=== PATIENT | female | born 1930 | race Caucasian/White ===

== ENCOUNTER 2017-10-01 16:38 | Emergency (ER) | payer MEDICARE, OTHER ==
[2017-10-01 17:03] VITALS: BP 118/64
[2017-10-01] MEDS ORDERED: DOXYcycline CAP(*) 100 MG PO ONE (17:53)
--- NOTE | 2017-10-01 18:11 | UC ---
Skin Complaint HPI - HPI Summary HPI Summary: patient states she noticed redness on the top of her left foot 3 days ago. She has cats, who sometimes sleep with her and she gets scratches from them. She states she may have been scratching herself while sleeping. Denies chills, fever. States she recently had intraarticular injections in both knees due to OA , on insulin to control DM. History he is of HTN and GERD as well. - History of Current Complaint Chief Complaint: UCSkin Time Seen by Provider: 10/01/17 17:02 Stated Complaint: SORE ON LEFT FOOT (TYPE 2 DIABETIC) Hx Obtained From: Patient ?: No Onset/Duration: Sudden Onset, Lasting Days Skin Exposure Onset/Duration: Days Ago Onset Severity: Mild Current Severity: Moderate Pain Intensity: 4 Location: Discrete, Foot (Left) Character: Redness Aggravating Factor(s): Nothing Alleviating Factor(s): Nothing Associated Signs & Symptoms: Positive: Negative Related History: Diabetes - Allergy/Home Medications Allergies/Adverse Reactions: Allergies Allergy/AdvReac Type Severity Reaction Status Date / Time diphenhydramine Allergy Agitation Verified 10/01/17 17:03 [From Benadryl] Penicillins Allergy Hives Verified 10/01/17 17:03 Home Medications: Home Medications Ibuprofen TAB* [Advil TAB*] 200 mg PO Q8H PRN 10/01/17 [History Confirmed ] Insulin Glargine/Lixisenatide [Soliqua 100 Unit-33 Mcg/ml Pen] 30 units SQ DAILY 10/01/17 [History Confirmed 10/01/17] Losartan Potassium 25 mg PO DAILY 10/01/17 [History Confirmed 10/01/17] Omeprazole CAP* [Prilosec CAP* 20 MG] 20 mg PO DAILY 10/01/17 [History Confirmed 10/01/17] celeCOXIB CAP* [CeleBREX CAP*] 100 mg PO BID 10/01/17 [History Confirmed ] clonazePAM TAB(*) [KlonoPIN TAB(*)] 0.5 mg PO BEDTIME PRN 10/01/17 [History Confirmed 10/01/17] Review of Systems Constitutional: Negative Skin: Rash, Bruising All Other Systems Reviewed And Are Negative: Yes PMH/Surg Hx/FS Hx/Imm Hx Previously Healthy: Yes - Surgical History Surgical History: Yes Surgery Procedure, Year, and Place: tonsillectomy. gallbladder 2013 - Social History Alcohol Use: None Substance Use Type: None Smoking Status (MU): Never Smoked Tobacco Physical Exam Triage Information Reviewed: Yes Appearance: Well-Appearing, No Pain Distress, Well-Nourished Vital Signs: Initial Vital Signs Temp 98.8 F 10/01/17 16:51 Pulse 91 10/01/17 16:51 Resp 16 10/01/17 16:51 BP 118/64 10/01/17 16:51 Pulse Ox 97 10/01/17 16:51 Vital Signs Reviewed: Yes Eyes: Positive: Conjunctiva Clear ENT: Positive: Hearing grossly normal Neck: Positive: Supple, Nontender, No Lymphadenopathy Respiratory: Positive: Chest non-tender, Lungs clear, Normal breath sounds, No respiratory distress Cardiovascular: Positive: RRR, No Murmur, Pulses Normal, Brisk Capillary Refill Abdomen Description: Positive: Nontender Musculoskeletal: Positive: Strength Intact, ROM Intact, No Edema, Other: - no LNE Skin Exam: Other - escoriation michel on both LE surrounded by erythema on dorsum of left foot. No pedal edema, no proximal LNE, non tender to touch. Toenail dystrophy left big toe. Pedal pulses present, brisk capillary refill. Course/Dx - Course Course Of Treatment: patient to start doxycycline as prescribed, apply bactroban on escoriations. - Diagnoses Provider Diagnoses: Cellulitis left foot Discharge - Sign-Out/Discharge Documenting (check all that apply): Patient Departure - Discharge Plan Condition: Stable Disposition: HOME Prescriptions: Bacitracin OINT* 113.4 gm .SEE ORDER BID #1 tube Cephalexin CAP* [Keflex CAP*] 500 mg PO TID 7 Days #21 cap DOXYcycline CAP(*) [DOXYcycline 100MG CAP(*)] 100 mg PO BID 7 Days #14 cap Mupirocin 2% OINT* [Bactroban 2 % Oint*] 1 applic TOPICAL BID #1 tube Patient Education Materials: Mupirocin (On the skin), Doxycycline (By mouth), Cellulitis (ED) Referrals: Peter Jones MD [Primary Care Provider] - - Billing Disposition and Condition Condition: STABLE Disposition: Home
== END 2017-10-01 18:09 | disposition home or self-care (01) ==
LOC: UCCORT 16:38
DX: L03.116 Cellulitis of left lower limb (principal); E11.9 Type 2 diabetes mellitus without complications; Z79.4 Long term (current) use of insulin; I10 Essential (primary) hypertension; K21.9 Gastro-esophageal reflux disease without esophagitis; Z88.0 Allergy status to penicillin; Z88.8 Allergy status to other drugs, medicaments and biological substances
CPT/HCPCS: 99212; A9270-GY; G0463

== ENCOUNTER 2017-11-11 10:44 | Emergency (ER) | payer MEDICARE ==
[2017-11-11 13:05] VITALS: BP 159/66
--- NOTE | 2017-11-11 14:07 | RAD ---
INDICATION: Cough COMPARISON: None TECHNIQUE: PA and lateral views of the chest were obtained. FINDINGS: The heart and mediastinum are normal in size and contour. There is mild calcification overlying the arch of the aorta. The lungs are grossly clear. There is no evidence of large pleural effusion. Degenerative changes of the thoracic spine include loss of intervertebral disc height and anterior marginal osteophyte formation. There is no radiographic evidence of free air beneath the diaphragm IMPRESSION: No radiographic evidence of acute cardiopulmonary disease.
--- NOTE | 2017-11-11 14:17 | UC ---
Respiratory Complaint HPI - HPI Summary HPI Summary: 87-year-old female with history of diabetes, hypokalemia in the past, presents with episode of coughing 2 days nonproductive, dry, improving currently, patient was worried about her blood sugar and potassium level. Patient feels well, and denies any nausea, vomiting, or fever. - History of Current Complaint Chief Complaint: UCGeneralIllness Stated Complaint: COUGH Pain Intensity: 0 - Allergies/Home Medications Allergies/Adverse Reactions: Allergies Allergy/AdvReac Type Severity Reaction Status Date / Time diphenhydramine Allergy Agitation Verified 11/11/17 13:05 [From Benadryl] Penicillins Allergy Hives Verified 11/11/17 13:05 PMH/Surg Hx/FS Hx/Imm Hx - Additional Past Medical History Additional PMH: Diabetes, hypokalemia Previously Healthy: Yes - Surgical History Surgical History: Yes Surgery Procedure, Year, and Place: tonsillectomy. gallbladder 2012 - Social History Alcohol Use: None Substance Use Type: None Smoking Status (MU): Never Smoked Tobacco Household Exposure Type: Cigarettes Review of Systems Constitutional: Negative Skin: Negative Eyes: Negative, Diplopia Respiratory: Cough Cardiovascular: Negative Gastrointestinal: Negative Genitourinary: Negative Motor: Negative Neurovascular: Negative Musculoskeletal: Negative Neurological: Negative Psychological: Negative All Other Systems Reviewed And Are Negative: Yes Physical Exam - Summary Physical Exam Summary: Gen: alert, in no acute distress HEENT: EOMI, normocephalic, atruamatic Neck: supple, no masses CV: Normal s1 s2, no murmurs Resp: normal breath sounds b/l GI: no tenderness, no masses Musculoskeletal: normal ROM all 4 extremities Neuro: no obvious focal neurological deficits Skin: no rash Lymph: no lymphadenopathy Psych: appropriate affect, oriented Triage Information Reviewed: Yes Vital Signs: Initial Vital Signs Temp 37.3 C 11/11/17 13:00 Pulse 102 11/11/17 13:00 Resp 16 11/11/17 13:00 BP 159/66 11/11/17 13:00 Pulse Ox 99 11/11/17 13:00 Diagnostic Evaluation - Laboratory O2 Sat by Pulse Oximetry: 99 Respiratory Course/Dx - Course Course Of Treatment: I informed the patient that it would not be possible to check her potassium in a timely fashion on today's visit, x-ray within normal limits. Given her vital signs showing low-grade fever and a mild tachycardia, I instructed the patient to report to the emergency department if the patient does not feel well. However, she pleasantly refuses at this time, will continue to supplement of potassium in her diet, and promises to report to the emergency department or to see her primary care physician if she feels ill or feels that she is not improving. EKG negative for any signs of hypokalemia. Patient and family agree to and understands discharge instructions. - Differential Dx/Diagnosis Provider Diagnoses: Cough Discharge - Sign-Out/Discharge Documenting (check all that apply): Patient Departure All imaging exams completed and their final reports reviewed: Yes - Discharge Plan Condition: Stable Disposition: HOME Patient Education Materials: Upper Respiratory Infection (DC) Referrals: Peter Jones MD [Primary Care Provider] - Additional Instructions: PLEASE MAKE AN APPOINTMENT FIRST THING IN THE MORNING TO BE SEEN BY YOUR PRIMARY DOCTOR WITHIN 1 WEEK PLEASE REPORT TO THE ER IMMEDIATELY FOR ANY WORSENING OR CONCERNING SYMPTOMS - Billing Disposition and Condition Condition: STABLE Disposition: Home
== END 2017-11-11 14:22 | disposition home or self-care (01) ==
LOC: UCCORT 10:44
DX: R05 Cough (principal); Z88.0 Allergy status to penicillin; Z88.8 Allergy status to other drugs, medicaments and biological substances; E11.9 Type 2 diabetes mellitus without complications
CPT/HCPCS: 71046; 93005; 99211; G0463

== ENCOUNTER 2017-11-15 16:50 | Emergency (ER) | payer MEDICARE ==
[2017-11-15 16:56] VITALS: BP 137/58
--- NOTE | 2017-11-15 17:51 | UC ---
Respiratory Complaint HPI - HPI Summary HPI Summary: Last assessed 11.11, at which time she had upper respiratory symptoms, with low grade fever, normal chest xray, sinus tach. Returns today with increasing cough and shortness of breath, with feeling of weakness. 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 Onset/Duration: Gradual Onset, Lasting Days - 4 Timing: Constant Severity Initially: Mild Severity Currently: Moderate Pain Intensity: 0 Character: Cough: Nonproductive Aggravating Factors: Exertion, Recumbent Position Alleviating Factors: Nothing Associated Signs And Symptoms: Positive: Dyspnea - Risk Factors Pulmonary Embolism Risk Factors: Negative - Allergies/Home Medications Allergies/Adverse Reactions: Allergies Allergy/AdvReac Type Severity Reaction Status Date / Time diphenhydramine Allergy Agitation Verified 11/15/17 16:56 [From Benadryl] Penicillins Allergy Hives Verified 11/15/17 16:56 PMH/Surg Hx/FS Hx/Imm Hx Respiratory History: Pneumonia - several times in the past GI/ History: Gastroesophageal Reflux Psychological History: Anxiety - Surgical History Surgical History: Yes Surgery Procedure, Year, and Place: tonsillectomy. gallbladder 2013 - Social History Occupation: Retired Lives: Alone Alcohol Use: None Substance Use Type: None Smoking Status (MU): Never Smoked Tobacco Household Exposure Type: Cigarettes Review of Systems Constitutional: Other - feels weak Skin: Negative Eyes: Negative ENT: Negative Respiratory: Negative Cardiovascular: Negative Gastrointestinal: Negative Genitourinary: Negative Motor: Weakness Neurovascular: Negative Musculoskeletal: Negative Neurological: Negative Psychological: Anxious Is Patient Immunocompromised?: No All Other Systems Reviewed And Are Negative: Yes Physical Exam Triage Information Reviewed: Yes Appearance: Ill-Appearing - looks mildly unwell, congested cough, Obese Vital Signs: Initial Vital Signs Temp 98.6 F 11/15/17 16:53 Pulse 114 11/15/17 16:53 Resp 22 11/15/17 16:53 BP 137/58 11/15/17 16:53 Pulse Ox 100 11/15/17 16:53 ENT: Positive: Pharynx normal Neck: Positive: Supple, Nontender, No Lymphadenopathy Respiratory: Positive: No respiratory distress, No accessory muscle use, Rhonchi - upper lung paris. Negative: Crackles, Wheezing Cardiovascular: Positive: RRR Musculoskeletal Exam: Normal Neurological Exam: Normal Skin Exam: Normal UC Diagnostic Evaluation - Laboratory O2 Sat by Pulse Oximetry: 100 Diagnostic Studies Comment: Awaiting radiology read. read with no changes compared to previous, no consolidation. - Radiology Xray Interpretation: No Acute Changes Radiology Interpretation Completed By: ED Physician Re-Evaluation - Re-Evaluation First Eval Re-Evaluation Time: 19:00 Change: Unchanged Respiratory Course/Dx - Course Course Of Treatment: begin azithromycin for possible early pneumonia given persistent low grade fever, malaise, cough, and coarse breath sounds on exam. - Differential Dx/Diagnosis Differential Diagnosis/HQI/PQRI: Bronchitis, Lower Resp Infection, Sinusitis Provider Diagnoses: possible early pneumonia Discharge - Sign-Out/Discharge Documenting (check all that apply): Patient Departure All imaging exams completed and their final reports reviewed: No - Discharge Plan Condition: Stable Disposition: HOME Prescriptions: Azithromyxin MARIANELA (NF) [Z-Marianela (Zithromax) 250 mg tabs #6] 2 tab PO .TODAY, THEN 1 DAILY #6 tab Referrals: Peter Jones MD [Primary Care Provider] - Additional Instructions: begin course of azithromycin, with suggestion that you follow up with Dr. Jones early next week. If you continue to feel unwell, I suggest that you be evaluated at [facility] tomorrow, or in the emergency room, where lab work can be done for assessment of your symptoms. You can continue use of ibuprofen for pain or fever. Ensure a good intake of fluids and nutritious foods. - Billing Disposition and Condition Condition: STABLE Disposition: Home
--- NOTE | 2017-11-16 07:40 | RAD ---
INDICATION: Cough progressive shortness of breath. COMPARISON: Comparison is made with prior chest x-ray study from November 11, 2017. TECHNIQUE: Dual-energy PA and lateral views of the chest were obtained. FINDINGS: The heart is within normal limits in size. Mediastinal and hilar contours appear within normal limits. The lungs are hyperinflated and clear. No pleural effusion is seen. IMPRESSION: FINDINGS CONSISTENT WITH COPD, NO EVIDENCE FOR ACUTE FINDING. R0
--- NOTE | 2017-11-16 15:15 | UC ---
- Progress Note Progress Note: Patient Name: SIERRA PACHECO Medical Record#: [id number] Ordering Physician: Nina Sandoval MD Acct.#: [id number] : 1930 Age: 87 Sex: F Location: [facility] Exam Date: 11/15/171744 ADM Status: [facility] ER Order Information: CHEST PA & LAT 2 VWS Accession Number: [id number] CPT: 34098 INDICATION: Cough progressive shortness of breath. COMPARISON: Comparison is made with prior chest x-ray study from November 11, 2017. TECHNIQUE: Dual-energy PA and lateral views of the chest were obtained. FINDINGS: The heart is within normal limits in size. Mediastinal and hilar contours appear within normal limits. The lungs are hyperinflated and clear. No pleural effusion is seen. IMPRESSION: FINDINGS CONSISTENT WITH COPD, NO EVIDENCE FOR ACUTE FINDING. R0 <Electronically signed by Robert Barros MD in OV> 11/16/17736 Dictated By: Robert Barros MD Dictated Date/Time: 11/16/17736 Transcribed Date/Time: 11/16/17734 Copy to: CC:Nina Sandoval MD; Peter Jones MD Imaging - [facility] [place] [address] [address] ph ([phone]) ph ([phone]) ph ([phone]) This report is only to be considered final once signed by the Provider(s) as displayed in the "<Electronically Signed by >" field (s). Absence of a signature indicates the report is in a draft status and still needs to be finalized. In the event this document was created by someone other than the signing Provider, the individual initiating the document will be listed in the "Entered by:" or "Dictated by:" paris. 1 of 1 Re-Evaluation - Re-Evaluation First Eval Re-Evaluation Time: 19:00 Change: Unchanged Discharge - Sign-Out/Discharge Documenting (check all that apply): Post-Discharge Follow Up All imaging exams completed and their final reports reviewed: Yes - Discharge Plan Condition: Stable Disposition: HOME Prescriptions: Azithromyxin JEFFERSON (NF) [Z-Jefferson (Zithromax) 250 mg tabs #6] 2 tab PO .TODAY, THEN 1 DAILY #6 tab Patient Education Materials: Acute Bronchitis (ED) Referrals: Peter Jones MD [Primary Care Provider] - Additional Instructions: begin course of azithromycin, with suggestion that you follow up with Dr. Jones early next week. If you continue to feel unwell, I suggest that you be evaluated at [facility] tomorrow, or in the emergency room, where lab work can be done for assessment of your symptoms. You can continue use of ibuprofen for pain or fever. Ensure a good intake of fluids and nutritious foods. - Billing Disposition and Condition Condition: STABLE Disposition: Home
== END 2017-11-15 19:04 | disposition home or self-care (01) ==
LOC: UCCORT 16:50
DX: R06.02 Shortness of breath (principal); R05 Cough; R50.9 Fever, unspecified; Z88.8 Allergy status to other drugs, medicaments and biological substances; Z88.0 Allergy status to penicillin
CPT/HCPCS: 71046; 93005; 99212; G0463

== ENCOUNTER 2018-08-02 18:40 | Emergency (ER) | payer MEDICARE ==
[2018-08-02 20:14] VITALS: BP 156/84
--- NOTE | 2018-08-02 20:26 | UC ---
Bite Injury/Animal HPI - HPI Summary HPI Summary: Today got bit by her own cat during a feeding situation. This has never happened before and her cat is up to date with shots. Wound started to bleed then she called her grand daughter to help her. Currently not bleeding. She is able to open/close her hand. - History of Current Complaint Chief Complaint: UCBiteInjury Stated Complaint: CAT BITE/SCRATCH Time Seen by Provider: 08/02/18 19:57 Hx Obtained From: Patient Pain Intensity: 0 Pain Scale Used: 0-10 Numeric Onset/Duration: Sudden Onset Type of Bite: Pet - cat Has Animal Been Immunized?: Yes Character: Abrasion/Laceration Aggravating Factor(s): Nothing Alleviating Factor(s): Nothing Associated Signs And Symptoms: Positive: Erythema. Negative: Fever, Swelling, Lymphadenopathy, Numbness/Tingling - Allergies/Home Medications Allergies/Adverse Reactions: Allergies Allergy/AdvReac Type Severity Reaction Status Date / Time diphenhydramine Allergy Agitation Verified 11/15/17 16:56 [From Benadryl] Penicillins Allergy Hives Verified 11/15/17 16:56 Home Medications: Home Medications Acetaminophen [Tylenol Arthritis] 1,300 mg PO BID 08/02/18 [History Confirmed ] Naproxen TAB* [Naprosyn 375 mg TAB*] 375 mg PO DAILY PRN 08/02/18 [History Confirmed 08/02/18] PMH/Surg Hx/FS Hx/Imm Hx Endocrine History: Diabetes Cardiovascular History: Hypertension - Surgical History Surgical History: Yes Surgery Procedure, Year, and Place: tonsillectomy. gallbladder 2013 - Social History Alcohol Use: None Substance Use Type: None Smoking Status (MU): Never Smoked Tobacco Household Exposure Type: Cigarettes - Immunization History Most Recent Tetanus Shot: long time ago Review of Systems All Other Systems Reviewed And Are Negative: Yes Constitutional: Negative: Fever, Chills Skin: Positive: Other - +cat bite wound on R hand. Negative: Rash Neurological: Negative: Weakness, Paresthesia Physical Exam Triage Information Reviewed: Yes Appearance: Well-Appearing Vital Signs: Initial Vital Signs Temp 99.7 F 08/02/18 20:05 Pulse 79 08/02/18 20:05 Resp 18 08/02/18 20:05 BP 156/84 08/02/18 20:05 Pulse Ox 100 08/02/18 20:05 Vital Signs Reviewed: Yes Neurological: Positive: Alert Skin: Positive: Other - 3 in. abrasion w/ dried blood on R dorsal aspect of hand. ABle to open/close R hand. Mild redness. Mild bruising. Bite Injury Course/Dx - Course Course Of Treatment: Cat bite on R hand from her own cat that was up to date w/ vaccines. NO active bleeding. Vitals good, afebrile. Blood pressure elevated. offered tetanus, she will make appt w/ pcp for it. - Differential Dx/Diagnosis Differential Diagnosis/HQI/PQRI: Superficial Infection, Deep Space Infection, Other Provider Diagnosis: Hand pain, right, Cat bite Discharge - Sign-Out/Discharge Documenting (check all that apply): Patient Departure All imaging exams completed and their final reports reviewed: No Studies - Discharge Plan Condition: Good Disposition: HOME Prescriptions: DOXYcycline CAP(*) [DOXYcycline 100MG CAP(*)] 100 mg PO BID 7 Days #14 cap Patient Education Materials: Animal Bite (ED) Referrals: Peter Jones MD [Primary Care Provider] - Additional Instructions: Please monitor your hand for any redness or swelling and then follow up with your primary care. Your blood pressure is elevated so please follow up with your pcp. - Billing Disposition and Condition Condition: GOOD Disposition: Home
== END 2018-08-02 20:40 | disposition home or self-care (01) ==
LOC: UCCORT 18:40
DX: S61.451A Open bite of right hand, initial encounter (principal); W55.01XA Bitten by cat, initial encounter; Y93.89 Activity, other specified; Y92.009 Unspecified place in unspecified non-institutional (private) residence as the place of occurrence of the external cause; Z88.0 Allergy status to penicillin; E11.9 Type 2 diabetes mellitus without complications; I10 Essential (primary) hypertension
CPT/HCPCS: 99212; G0463

== ENCOUNTER 2018-08-07 17:08 | Emergency (ER) | payer MEDICARE ==
[2018-08-07 17:25] VITALS: BP 114/70
--- NOTE | 2018-08-07 18:11 | UC ---
Abdominal Pain Female HPI - HPI Summary HPI Summary: 87 yo female on day #5 of doxy for cat bite Cat bite much better no pain slight swelling and erythema - History of Current Complaint Chief Complaint: UCGI Stated Complaint: DIARRHEA,WEAKNESS,FATIGUE Hx Obtained From: Patient Onset/Duration: Sudden Onset, Lasting Hours Timing: Constant Severity Initially: Moderate Severity Currently: None Pain Intensity: 0 Pain Scale Used: 0-10 Numeric Location: Diffuse Character: Cramping Aggravating Factor(s): Other: - diarrhea Alleviating Factor(s): Spontaneous Resolution - resolved around noon Associated Signs and Symptoms: Positive: Dizzy, Diarrhea - x10 or more Allergies/Adverse Reactions: Allergies Allergy/AdvReac Type Severity Reaction Status Date / Time diphenhydramine Allergy Agitation Verified 08/07/18 17:25 [From Benadryl] Penicillins Allergy Hives Verified 08/07/18 17:25 PMH/Surg Hx/FS Hx/Imm Hx Previously Healthy: Yes Endocrine History: Diabetes Cardiovascular History: Hypertension - Surgical History Surgical History: Yes Surgery Procedure, Year, and Place: tonsillectomy. gallbladder 2012 - Family History Known Family History: Positive: Hypertension, Diabetes - Social History Alcohol Use: None Substance Use Type: None Smoking Status (MU): Never Smoked Tobacco Household Exposure Type: Cigarettes - Immunization History Most Recent Tetanus Shot: long time ago Review of Systems All Other Systems Reviewed And Are Negative: Yes Constitutional: Positive: Negative Skin: Positive: Negative Eyes: Positive: Negative ENT: Positive: Negative Respiratory: Positive: Negative Cardiovascular: Positive: Negative Gastrointestinal: Positive: Abdominal Pain - resolved around noon, Diarrhea Genitourinary: Positive: Negative Motor: Positive: Negative Neurovascular: Positive: Negative Musculoskeletal: Positive: Negative Neurological: Positive: Negative Psychological: Positive: Negative Physical Exam Triage Information Reviewed: Yes Appearance: Well-Appearing, No Pain Distress, Well-Nourished Vital Signs: Initial Vital Signs Temp 97.9 F 08/07/18 17:21 Pulse 98 08/07/18 17:21 Resp 20 08/07/18 17:21 BP 114/70 08/07/18 17:21 Pulse Ox 100 08/07/18 17:21 Vital Signs Reviewed: Yes Eyes: Positive: Conjunctiva Clear ENT: Positive: Hearing grossly normal. Negative: Nasal congestion, Nasal drainage, Trismus, Muffled voice, Hoarse voice Dental Exam: Normal Neck: Positive: Supple, Nontender, No Lymphadenopathy Respiratory: Positive: Lungs clear, Normal breath sounds, No respiratory distress, No accessory muscle use Cardiovascular: Positive: RRR, No Murmur Abdomen Description: Positive: Nontender, No Organomegaly, Soft. Negative: CVA Tenderness (R), CVA Tenderness (L) Bowel Sounds: Positive: Present Musculoskeletal: Positive: Other: - joint deformitiy consistent with OA Neurological: Positive: Alert Psychological Exam: Normal Skin Exam: Normal Abd Pain Female Course/Dx - Differential Dx/Diagnosis Provider Diagnosis: Antibiotic-associated diarrhea Discharge - Sign-Out/Discharge Documenting (check all that apply): Patient Departure All imaging exams completed and their final reports reviewed: No Studies - Discharge Plan Condition: Stable Disposition: HOME Prescriptions: Mupirocin 2% OINT* [Bactroban 2 % Oint*] 1 applic TOPICAL TID #1 tube Patient Education Materials: Acute Diarrhea (ED), Nutrition Tips for Relief of Diarrhea (ED) Referrals: Peter Jones MD [Primary Care Provider] - If Needed Additional Instructions: recheck in 2 days if not back to normal use bactriban oint 3 x day until healed - Billing Disposition and Condition Condition: STABLE Disposition: Home
== END 2018-08-07 18:44 | disposition home or self-care (01) ==
LOC: UCCORT 17:08
DX: K52.1 Toxic gastroenteritis and colitis (principal); T36.4X5A Adverse effect of tetracyclines, initial encounter; Y92.9 Unspecified place or not applicable; Z88.0 Allergy status to penicillin; E11.9 Type 2 diabetes mellitus without complications; I10 Essential (primary) hypertension
CPT/HCPCS: 99212; G0463